=== PATIENT | male | born 1960 | race Caucasian/White ===

== ENCOUNTER 2016-12-03 10:38 | Day surgery (SDC) | payer MEDICARE, MEDICAID ==
[~2016-12-03 10:38] MED LIST: ANTACID LIQUID355 M1 PO; ANTIFUNGAL CREA14 G1 TOP; BISMATROL PO; CALADRYL 1%-8%177 ML TOP; DEBROX15 M1 EACH EAR; ENEMA133 M4 PR; GUAIFENESIN DM S5 M1 PO; KAOPECTATE262 MG/15 PO; LAMICTAL200 M2 PO; MILK OF MAGNESIA PO; POLYETHYLENE GL17 G1 PO; SENNA PLUS TAB1 EAC1 PO; TRIPLE ANTIB28.35 GM TOP; TYLENOL325 M2 PO
== END 2016-12-03 16:35 ==
LOC: SHSB 10:38 → ORE 13:18 → PACU 14:18 → SHSB 14:55
PROC: 0CDXXZ1 Extraction of Lower Tooth, Multiple, External Approach (ICD-10-PCS; principal; 2016-12-03)
PROC: 0CDWXZ1 Extraction of Upper Tooth, Multiple, External Approach (ICD-10-PCS; 2016-12-03)
DX: K08.89 Other specified disorders of teeth and supporting structures (principal); G40.309 Generalized idiopathic epilepsy and epileptic syndromes, not intractable, without status epilepticus; F73 Profound intellectual disabilities; K59.00 Constipation, unspecified; Z79.899 Other long term (current) drug therapy; Z98.890 Other specified postprocedural states